=== PATIENT | male | born 1995 | race Caucasian/White ===

== ENCOUNTER 2020-06-09 19:09 | Emergency (ER) | payer SELFPAY ==
[2020-06-09 19:30] VITALS: BP 135/85
--- NOTE | 2020-06-09 19:54 | ER Document Report ---
HPI - HPI Patient complains to provider of: Decreased hearing to left ear Time Seen by Provider: 06/09/20 19:47 Onset: This morning Onset/Duration: Gradual Quality of pain: No pain Context: Patient reports decreased hearing to the left ear that he noticed today. Patient denies any drainage or discharge from the ear. Patient denies any ear pain. Patient denies any fever. Exacerbated by: Denies Relieved by: Denies Similar symptoms previously: No Recently seen / treated by doctor: No - ROS ROS below otherwise negative: Yes Systems Reviewed and Negative: Yes All other systems reviewed and negative - CONSTITUTIONAL Constitutional: DENIES: Fever - EENT Notes: Decreased hearing to the left ear - GASTROINTESTINAL Gastrointestinal: DENIES: Nausea - DERM Skin Color: Normal Skin Problems: None Past Medical History - General Information source: Patient - Social History Smoking Status: Never Smoker Frequency of alcohol use: None Drug Abuse: None Occupation: Call center Lives with: Family Family History: Reviewed & Not Pertinent - Medical History Medical History: Negative Surgical Hx: Negative Vertical Provider Document - CONSTITUTIONAL Agree With Documented VS: Yes Exam Limitations: No Limitations General Appearance: WD/WN, No Apparent Distress - HEENT HEENT: Atraumatic, Normocephalic Notes: Cerumen impaction to left ear, right TM normal - NECK Neck: Normal Inspection, Supple. negative: Lymphadenopathy-Left, Lymphadenopathy-Right - RESPIRATORY Respiratory: Breath Sounds Normal, No Respiratory Distress - CARDIOVASCULAR Cardiovascular: Regular Rate, Regular Rhythm - MUSCULOSKELETAL/EXTREMETIES Musculoskeletal/Extremeties: MAEW - NEURO Level of Consciousness: Awake, Alert, Appropriate Motor/Sensory: No Motor Deficit - DERM Integumentary: Warm, Dry, No Rash Course - Re-evaluation Re-evalutation: 06/09/20 20:26 Patient tolerated ear irrigation without difficulty, left TM normal, left external auditory canal normal. Patient reports improved hearing - Vital Signs Vital signs: Temp Pulse Resp BP Pulse Ox 98.1 F 73 20 135/85 H 100 06/09/20 19:26 06/09/20 19:26 06/09/20 19:26 06/09/20 19:26 06/09/20 19:26 Discharge - Discharge Clinical Impression: Impacted cerumen of left ear Condition: Stable Disposition: HOME, SELF-CARE Instructions: Cerumen Impaction ([facility]) Additional Instructions: Return immediately for any new or worsening symptoms Followup with your primary care provider, call tomorrow to make a followup appointment
== END 2020-06-09 20:37 | disposition home or self-care (01) ==
LOC: ER 19:09
DX: H61.22 Impacted cerumen, left ear (principal)
CPT/HCPCS: 99283